=== PATIENT | female | born 1960 | race Caucasian/White ===

== ENCOUNTER 2017-04-13 15:09 | Emergency (ER) | payer OTHER ==
[2017-04-13 15:52] LABS: BASOPHIL 0.4 % (0-2); EOSINOPHIL 3.7 % (0-5); HCT 38.8 % (37.0-47.0); HGB 13.1 g/dl (12.5-16.0); LYMPHOCYTE 29.2 % (15-48); MCH 31.6 pg (25.0-31.0); MCHC 33.8 g/dL (32.0-36.0); MCV 93.5 fL (78.0-100.0); MONOCYTE 13.8 % (0-12); NEUTROPHIL 52.9 % (41-80); PLT 204 K/uL (150-400); RBC 4.15 M/uL (4.20-5.40); RDW 12.6 % (11.5-14.0); WBC 5.1 K/uL (4.0-10.5)
[2017-04-13 15:55] LABS: BILIRUBIN NEGATIVE (NEGATIVE); BLOOD 3+ Ery/uL (NEGATIVE); COLOR YELLOW (YELLOW); GLUCOSE (U) NORMAL (NORMAL); KETONE (U) TRACE mg/dL (NEGATIVE); LEUKOCYTES NEGATIVE Leu/uL (NEGATIVE); NITRITE NEGATIVE (NEGATIVE); PROTEIN 1+ mg/dL (NEGATIVE); SPECIFIC GRAVITY >=1.030 (1.001-1.030); UROBILINOGEN 0.2 mg/dL (0.2-1.0); pH 5.5 (5.0-9.0)
[2017-04-13 15:56] LABS: CLARITY HAZY (CLEAR)
[2017-04-13 15:58] LABS: URINARY WBC RARE
[2017-04-13 16:03] LABS: ALBUMIN 4.3 g/dL (3.5-5.0); BILIRUBIN - TOTAL 0.2 mg/dL (0.1-1.0); CREATININE 0.9 mg/dL (0.5-1.0); GLOBULIN (CALCULATION) 3.5 g/dL (2.2-4.2); POTASSIUM 4.1 mmol/L (3.5-5.1); TOTAL PROTEIN 7.8 g/dL (6.4-8.3)
== END 2017-04-14 00:07 | disposition other institution (70) ==
LOC: FER 15:09
PROVIDERS: Emergency Medicine
DX: N13.2 Hydronephrosis with renal and ureteral calculous obstruction (principal); I10 Essential (primary) hypertension
CPT/HCPCS: 36415; 74000; 80053; 81001; 82150; 83690; 85025; J1170; J1885; J2270; J2405